=== PATIENT | female | born 1955 | race Caucasian/White ===

== ENCOUNTER 2019-12-03 19:21 | Emergency (ER) | payer MEDICAID ==
[~2019-12-03] VITALS: Ht 170.2 cm; Wt 111.9 kg
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
[2019-12-03] MEDS ORDERED: APAP/CODEINE 300/30MG TABLET PO PRN (20:30)
--- NOTE | 2019-12-03 20:37 | NUR ---
TO CT SCAN
[2019-12-03 21:30] VITALS: BP 142/70
--- NOTE | 2019-12-03 21:33 | NUR ---
C COLLLAR REMVED BY PROVIDER REMAINS WITHOUT NEURO DEFICITS
== END 2019-12-03 21:57 | disposition home or self-care (01) ==
LOC: ED 21:49
DX: S16.1XXA Strain of muscle, fascia and tendon at neck level, initial encounter (principal); S20.212A Contusion of left front wall of thorax, initial encounter; S20.211A Contusion of right front wall of thorax, initial encounter; S20.01XA Contusion of right breast, initial encounter; M50.30 Other cervical disc degeneration, unspecified cervical region; I10 Essential (primary) hypertension; E11.9 Type 2 diabetes mellitus without complications; V48.5XXA Car driver injured in noncollision transport accident in traffic accident, initial encounter; Y93.89 Activity, other specified; Y92.89 Other specified places as the place of occurrence of the external cause; Y99.8 Other external cause status
CPT/HCPCS: 71250; 72125; 93005; 99285